=== PATIENT | male | born 1950 | race Hispanic/Latino ===

== ENCOUNTER 2018-10-30 19:27 | Inpatient (IN) | payer MEDICARE | END 2018-11-01 14:35 | disposition home or self-care (01) | LOC: EDH 19:27 → 4AH 10-31 02:23 → EDHIP 21:00 | PROC: 0WC Anatomical Regions, General, Extirpation (ICD-10-PCS; principal; 2018-10-31 10:07) | DX: S06.5X9A Traumatic subdural hemorrhage with loss of consciousness of unspecified duration, initial encounter (principal) ==